=== PATIENT | female | born 1990 | race Caucasian/White ===

== ENCOUNTER 2017-10-12 | Emergency (ER) | payer SELFPAY ==
[~2017-10-12] VITALS: Ht 162.6 cm; Wt 48.0 kg
[2017-10-12 01:04] LABS: CLARITY URINE CLOUDY (CLEAR); COLOR URINE YELLOW (YELLOW); KETONES URINE TRACE (NEGATIVE); LEUKOCYTE ESTERASE URINE 3+ (NEGATIVE); NITRITE URINE NEGATIVE (NEGATIVE); OCCULT BLOOD URINE 3+ (NEGATIVE); PH URINE 6.5 (4.5-8.0); PROTEIN URINE TRACE (NEGATIVE); SPECIFIC GRAVITY URINE 1.024 (1.005-1.030)
[2017-10-12 04:02] VITALS: BP 103/66
[2017-10-12] MEDS ORDERED: NITROFURANTOIN 100MG M/M CAPSULE PO ONE (04:15)
[2017-10-12 14:08] LABS: UCG SCREEN NEGATIVE
== END 2017-10-12 04:35 | disposition home or self-care (01) ==
LOC: ER
DX: N39.0 Urinary tract infection, site not specified (principal); Z88.0 Allergy status to penicillin
CPT/HCPCS: 81003; 81025; 87077; 87086; 99284; Z7610